=== PATIENT | male | born 1975 | race African-American/Black ===

== ENCOUNTER 2017-07-26 06:20 | Emergency (ER) ==
[2017-07-26 06:32] VITALS: BP 167/116; TEMP 97.7; BMI 32.1
[2017-07-26] MEDS ORDERED: ASPIRIN CHEWABLE PO STA (06:36)
--- NOTE | 2017-07-26 06:41 | ED.PDOC ---
General <TRENTON MARKHAM - Last Filed: 07/26/17 08:39> Stated Complaint: Woke up with mid sternal chest pain, heavyness, radiating to left arm, been short of breah Time Seen by Physician: 06:38 Mode of Arrival: Walk-In Information Source: Patient Nursing and Triage Documentation Reviewed and Agree: Yes Reviewed sepsis parameters & appropriate labs ordered?: Yes System Inflammatory Response Syndrome: Not Applicable <LEIDY EUGENE - Last Filed: 08/01/17 10:54> ED Provider: Dr. LEIDY EUGENE Chief Complaint: Chest Pain Sepsis Protocol: For patient's 13 years and over: Temp is 96.8 and below OR 101 and greater Pulse >90 BPM Resp >20/minute Acutely Altered Mental Status Are patient's symptoms suggestive of a new infection, such as: -Pneumonia -Skin, Soft Tissue -Endocarditis -UTI -Bone, Joint Infection -Implantable Device -Acute Abdominal Infection -Wound Infection -Meningitis -Blood Stream Catheter Infection -Unknown Cardiovascular Complaint Exam - Chest Pain Complaint/Exam Onset: Gradual Symptoms Are: Still present Timing: Constant Initial Severity: Moderate Current Severity: Moderate Location: Reports: Discrete, Midsternal Pain Radiates: Reports: None Character: Reports: Dull, Aching, Tightness Aggravating: Reports: None Alleviating: Reports: None Associated Signs and Symptoms: Denies: Diaphoresis, Nausea, Vomiting, Fever, Palpitations, Cough, Hemoptysis, Back pain, Abdominal pain, Dizziness, Short of air, Calf pain, Calf swelling Related Surgical History: Reports: None History of Healthcare-Acquired Pneumonia: Reports: No AMI/ACS Risk Factors: Reports: Family history TAD Risk Factors: Reports: None Pulmonary Embolism Risk Factors: Reports: None Prior Care for this Complaint: No Recent Stress Test: No Recent Echo/LV Function: No JVD Present: No Subcutaneous Emphysema Present: No Diminshed Breath Sounds: No Reproducible Chest Wall Pain: No Bilateral Pulses Present: No Unequal Pulses Noted: No If Risk Factors for AMI/ACS Consider: EKG, Cardiac Enzymes, Serial Studies, Oxygen, Aspirin Differential Diagnoses: ACS, Stable Angina Quality Indicators For Acute HI or Cardiac Chest Pain: EKG in 10min., ASA if indicated <LEIDY EUGENE - Last Filed: 08/01/17 10:54> Review of Systems - Review Of Systems Constitutional: Reports: No symptoms Eyes: Reports: No symptoms Ears, Nose, Mouth, Throat: Reports: No symptoms Respiratory: Reports: No symptoms Cardiac: Reports: Chest pain GI: Reports: No symptoms : Reports: No symptoms Musculoskeletal: Reports: No symptoms Skin: Reports: No symptoms Neurological: Reports: No symptoms Endocrine: Reports: No symptoms Hematologic/Lymphatic: Reports: No symptoms All Other Systems: Reviewed and Negative <LEIDY EUGENE Last Filed: 08/01/17 10:54> Past Medical History - Past Medical History Previously Healthy: Yes Endocrine: Reports: None Cardiovascular: Reports: None Respiratory: Reports: None Hematological: Reports: None Gastrointestinal: Reports: None Genitourinary: Reports: None Neuro/Psych: Reports: None Musculoskeletal: Reports: None Cancer: Reports: None - Surgical History General Surgical History: Reports: None - Family History Family History: Reports: Heart - Social History Smoking Status: Never smoker Hx Substance Use: Yes (marijuana) Alcohol Screening: Occasionally - Immunizations Tetanus Shot up to Date: Yes <LEDIY EUGENE Last Filed: 08/01/17 10:54> Physical Exam - Physical Exam Appearance: Well-appearing, No pain distress, Well-nourished Eyes: HAILEY, EOMI, Conjunctiva clear ENT: Ears normal, Nose normal, Oropharynx normal Respiratory: Airway patent, Breath sounds clear, Breath sounds equal, Respirations nonlabored Cardiovascular: RRR, Pulses normal, No rub, No murmur GI/: Soft, Nontender, No masses, Bowel sounds normal, No Organomegaly Musculoskeletal: Normal strength, ROM intact, No edema, No calf tenderness Skin: Warm, Dry, Normal color Neurological: Sensation intact, Motor intact, Reflexes intact, Cranial nerves intact, Alert, Oriented Psychiatric: Affect appropriate, Mood appropriate <LEIDY EUGENE Last Filed: 08/01/17 10:54> Interpretation - Radiology Interpretation Radiology Interpretation By: Radiologist Radiology Results: Negative Exam Interpreted: CXR <TRENTON MARKHAM Last Filed: 07/26/17 08:39> Re-Evaluation - Re-Evaluation Time of Re-Evaluation: 07:47 Status: Improved Vital Signs Stable: Yes (132/80) Pain Level: <4 <TRENTON MARKHAM Last Filed: 07/26/17 08:39> Critical Care Note - Critical Care Note Total Time (mins): 15 <LEIDY EUGENE - Last Filed: 08/01/17 10:54> Course - Course Hematology/Chemistry: 07/26/17 06:50 07/26/17 06:50 <SHAHRZADTRENTON - Last Filed: 07/26/17 08:39> - Course Hematology/Chemistry: 07/26/17 06:50 07/26/17 06:50 <LEIDY EUGENE - Last Filed: 08/01/17 10:54> - Course Orders, Labs, Meds: Lab Review 07/26/17 07/26/17 07/26/17 06:50 06:50 06:50 WBC 6.25 RBC 5.10 Hgb 14.2 Hct 41.9 L MCV 82.2 MCH 27.8 MCHC 33.9 RDW Coeff of Afsaneh 13.1 Plt Count 228 Immature Gran % (Auto) 0.0 Neut % (Auto) 27.3 Lymph % (Auto) 55.7 H [place] % (Auto) 11.2 H Eos % (Auto) 4.8 Baso % (Auto) 1.0 Immature Gran # (Auto) 0.0 Neut # 1.7 L Lymph # 3.5 H [place] # 0.7 Eos # 0.3 Baso # 0.1 D-Dimer (Manual) 159.70 Sodium 140 Potassium 4.1 Chloride 106 Carbon Dioxide 28 Anion Gap 10.1 BUN 11 Creatinine 0.91 Estimated GFR (MDRD) 112.00 BUN/Creatinine Ratio 12.08 Glucose 104 H Calcium 9.4 Total Bilirubin 0.5 AST 19 ALT 18 Alkaline Phosphatase 52 Total Creatine Kinase 229 CK-MB (CK-2) 2.6 CK-MB (CK-2) % 1.56107 Troponin I < 0.0100 Total Protein 7.3 Albumin 3.8 Globulin 3.5 Albumin/Globulin Ratio 1.09 Triglycerides Cholesterol LDL Cholesterol, Calc VLDL Cholesterol HDL Cholesterol Cholesterol/HDL Ratio TSH 07/26/17 07:55 WBC RBC Hgb Hct MCV MCH MCHC RDW Coeff of Afsaneh Plt Count Immature Gran % (Auto) Neut % (Auto) Lymph % (Auto) [place] % (Auto) Eos % (Auto) Baso % (Auto) Immature Gran # (Auto) Neut # Lymph # [place] # Eos # Baso # D-Dimer (Manual) Sodium Potassium Chloride Carbon Dioxide Anion Gap BUN Creatinine Estimated GFR (MDRD) BUN/Creatinine Ratio Glucose Calcium Total Bilirubin AST ALT Alkaline Phosphatase Total Creatine Kinase CK-MB (CK-2) CK-MB (CK-2) % Troponin I 0.0130 Total Protein Albumin Globulin Albumin/Globulin Ratio Triglycerides 54 Cholesterol 134 LDL Cholesterol, Calc 90 VLDL Cholesterol 11 HDL Cholesterol 33 L Cholesterol/HDL Ratio 4.1 L TSH 1.694 Orders Category Date Time Status EKG-(ED ONLY) Stat CARDIO 07/26/17 06:36 Completed NPO REMINDER: LAB TEST ONCE CARE 07/26/17 08:00 Completed CBC W/ AUTO DIFF Stat LAB 07/26/17 06:50 Completed COMPREHENSIVE METABOLIC PANEL Stat LAB 07/26/17 06:50 Completed CREATINE KINASE Stat LAB 07/26/17 06:50 Completed D-DIMER Stat LAB 07/26/17 06:50 Completed LIPID PANEL Stat LAB 07/26/17 07:55 Completed THYROID STIMULATING HORMONE Stat LAB 07/26/17 07:55 Completed TROPONIN I Stat LAB 07/26/17 06:50 Completed TROPONIN I Stat LAB 07/26/17 07:55 Completed Aspirin [Aspirin Chewable] MEDS 07/26/17 06:36 Discontinued 324 mg PO ONCE STA Morphine Sulfate [Morphine 2 mg/ml Syringe] MEDS 07/26/17 07:09 Discontinued 2 mg IVP ONCE STA Ondansetron HCl/Pf [Zofran 4 mg/2 ml] MEDS 07/26/17 07:08 Discontinued 4 mg IVP ONCE STA CHEST, 2 VIEWS PA & LAT Stat RADS 07/26/17 06:36 Completed Medications Discontinued Medications Generic Name Dose Route Start Last Admin Trade Name Jann PRN Reason Stop Dose Admin Aspirin 324 mg 07/26/17 06:36 07/26/17 06:52 Aspirin Chewable PO 07/26/17 06:37 324 mg ONCE STA Administration Morphine Sulfate 2 mg 07/26/17 07:09 07/26/17 07:10 Morphine 2 Mg/Ml Syringe IVP 07/26/17 07:10 2 mg ONCE STA Administration Ondansetron HCl 4 mg 07/26/17 07:08 07/26/17 07:10 Zofran 4 Mg/2 Ml IVP 07/26/17 07:09 4 mg ONCE STA Administration Vital Signs: Temp Pulse Resp BP Pulse Ox 07/26/17 06:23 97.7 F 55 L 20 167/116 H 98 SHWETA Risk Score Age >/= 65: No Known CAD (Stenosis >/= 50%): No ASA Use in Past 7 Days: No Severe Angina (>/= 2 episodes in 24 hours): No EKG ST Changes >/= 0.5mm: No Postive Cardiac Marker: No SHWETA Total Score: 0 <LEIDY EUGENE - Last Filed: 08/01/17 10:54> SHWETA Risk Score: Risk Score Odds of by 30D 0 0.1 (0.1-0.2) 1 0.3 (0.2-0.3) 2 0.4 (0.3-0.5) 3 0.7 (0.6-0.9) 4 1.2 (1.0-1.5) 5 2.2 (1.9-2.6) 6 3.0 (2.5-3.6) 7 4.8 (3.8-6.1) Departure - Departure Time of Disposition: 08:40 Pt referred to PMD for follow-up: Yes IPMP verified?: No Disposition Discussed With: Patient, Family <TRENTON MARKHAM - Last Filed: 07/26/17 08:39> <LEIDY EUGENE - Last Filed: 08/01/17 10:54> - Departure Disposition: HOME SELF-CARE Discharge Problem: Chest pain, Non-cardiac chest pain Instructions: Chest Pain (ED) Condition: Stable Additional Instructions: Follow up with the clinic to get established and get referral to cardiology for stress test Return if worse. Take Asa 81mg Daily until see by PCP Prescriptions: Ibuprofen [Motrin] 600 mg PO Q6H PRN #30 tablet PRN Reason: Analgesia Tramadol HCl [Ultram] 50 mg PO Q6H PRN #10 tablet PRN Reason: Severe Pain Allergies/Adverse Reactions: Allergies No Known Allergies Allergy (Unverified 07/26/17 06:29) Home Medications: Ambulatory Orders Ibuprofen [Motrin] 600 mg PO Q6H PRN #30 tablet 07/26/17 Tramadol HCl [Ultram] 50 mg PO Q6H PRN #10 tablet 07/26/17
[2017-07-26] MEDS ORDERED: ZOFRAN 4 MG/2 ML IM STA (06:42)
[2017-07-26] MEDS ORDERED: MORPHINE 2 MG/ML SYRINGE IM STA (06:42)
--- NOTE | 2017-07-26 07:00 | DI ---
EXAM: PA and lateral views of the chest HISTORY: Chest pain COMPARISON: None FINDINGS: Lungs are clear with no lobar consolidation, failure, large effusion or significant atelec tasis. Cardiac and mediastinal silhouettes show no acute abnormality. No acute osseous or soft tiss ue abnormalities. IMPRESSION: No active disease.
[2017-07-26] MEDS ORDERED: ZOFRAN 4 MG/2 ML IVP STA (07:08)
[2017-07-26] MEDS ORDERED: MORPHINE 2 MG/ML SYRINGE IVP STA (07:09)
== END 2017-07-26 08:50 | disposition home or self-care (01) ==
LOC: ED 06:20
DX: R07.89 Other chest pain (principal); R06.02 Shortness of breath
CPT/HCPCS: 36415; 80053; 80061; 82550; 82553; 84443; 84484; 85025; 85379; 93005; 93010; 96374; 96375; 99284

== ENCOUNTER 2018-07-14 18:42 | Emergency (ER) ==
[2018-07-14 18:42] VITALS: BMI 32.1
[2018-07-14 18:45] VITALS: BP 135/85; TEMP 97.8
[2018-07-14] MEDS ORDERED: TORADOL IVP STA (18:54)
[2018-07-14] MEDS ORDERED: ZOFRAN 4 MG/2 ML IVP STA (18:54)
[2018-07-14] MEDS ORDERED: SODIUM CHLORIDE 1,000 ML IV STA (18:54)
--- NOTE | 2018-07-14 18:59 | ED.PDOC ---
General ED Provider: Dr. TRENTON MARKHAM Chief Complaint: Kidney Stone Stated Complaint: Patient is a 42 year old male who comes to the Er with a one day history of bilateral flank pain. Pain worse during urination has a history of kidney stones. states he has not eaten all day. Took aleve at lunch time. Time Seen by Physician: 18:56 Mode of Arrival: Walk-In Information Source: Patient Exam Limitations: No limitations Nursing and Triage Documentation Reviewed and Agree: Yes Does patient meet sepsis criteria?: No System Inflammatory Response Syndrome: Not Applicable Sepsis Protocol: For patient's 13 years and over: Temp is 96.8 and below OR 101 and greater Pulse >90 BPM Resp >20/minute Acutely Altered Mental Status Are patient's symptoms suggestive of a new infection, such as: -Pneumonia -Skin, Soft Tissue -Endocarditis -UTI -Bone, Joint Infection -Implantable Device -Acute Abdominal Infection -Wound Infection -Meningitis -Blood Stream Catheter Infection -Unknown Musculoskeletal Complaint Exam - Back Pain Complaint/Exam Mechanism of Injury: Reports: No known trauma Onset/Duration: 1-2 days Symptoms Are: Still present Timing: Constant Initial Severity: Moderate Current Severity: Severe Location: Reports: Radiating (to the groin ) Character: Reports: Aching, Throbbing Aggravating: Reports: Movements, Bending, Walking Alleviating: Reports: None Associated Signs and Symptoms: Reports: Flank pain. Denies: Swelling, Redness, Bruising, Fever, Weakness, Numbness, Tingling, Abdominal pain, Bladder incontinence, Bowel incontinence, Weight loss, Pain with weight bearing Related History: Reports: Similar episode (kidney stones many years ago. ) TAD Risk Factors: Reports: None AAA Risk Factors: Reports: None Cauda Equina Risk Factors: Reports: None Epidural Abcess Risk Factors: Reports: None Related Surgical History: Reports: None Focal Tenderness: Yes (left lower back and buttocks ) Paraspinal Muscle Tenderness: Yes Paraspinal Muscle Spasm: Yes Scoliosis: No Lordosis: No Kyphosis: No SLR Test: Right Negative, Left Negative Hip Motion Testing Pain: Right Negative, Left Negative Focal Weakness: Present: None Focal Sensory Loss: Present: None Gait: Present: Normal Back Picture: 1 - are of pain and tenderness Differential Diagnoses: Herniated Disk, Renal Colic, Strain, Sprain Review of Systems - Review Of Systems Constitutional: Reports: No symptoms Eyes: Reports: No symptoms Ears, Nose, Mouth, Throat: Reports: No symptoms Respiratory: Reports: No symptoms Cardiac: Reports: No symptoms GI: Reports: Poor appetite. Denies: Diarrhea, Nausea, Vomiting : Reports: Flank pain, Pain Musculoskeletal: Reports: Back pain Skin: Reports: No symptoms Neurological: Reports: Anxiety Endocrine: Reports: No symptoms Hematologic/Lymphatic: Reports: No symptoms All Other Systems: Reviewed and Negative Past Medical History - Past Medical History Previously Healthy: Yes Endocrine: Reports: None Cardiovascular: Reports: None Respiratory: Reports: None Hematological: Reports: None Gastrointestinal: Reports: None Genitourinary: Reports: Kidney stones Neuro/Psych: Reports: None Musculoskeletal: Reports: None Cancer: Reports: None - Surgical History General Surgical History: Reports: None - Family History Family History: Reports: Heart - Social History Smoking Status: Never smoker Hx Substance Use: No Alcohol Screening: Occasionally - Immunizations Tetanus Shot up to Date: Yes Physical Exam - Physical Exam Appearance: Ill-appearing Ill-appearing: Moderate Pain Distress: Severe Eyes: HAILEY, EOMI, Conjunctiva clear ENT: Dry mucosa Neck: Supple Respiratory: Airway patent, Breath sounds clear, Breath sounds equal, Respirations nonlabored Cardiovascular: RRR, Pulses normal, No rub, No murmur GI/: Soft, Nontender, No masses, Bowel sounds normal, No Organomegaly Musculoskeletal: Limited ROM (of lower back ) Skin: Warm, Dry Neurological: Sensation intact, Motor intact, Reflexes intact, Cranial nerves intact, Alert, Oriented Psychiatric: Anxious Interpretation - Radiology Interpretation Radiology Interpretation By: Radiologist Radiology Results: Negative Exam Interpreted: CT Scan Re-Evaluation - Re-Evaluation Time of Re-Evaluation: 20:53 Status: Improved Vital Signs Stable: Yes Pain Level: 06/11 Critical Care Note - Critical Care Note Total Time (mins): 0 Course - Course Hematology/Chemistry: 07/14/18 19:04 07/14/18 19:04 Orders, Labs, Meds: Lab Review 07/14/18 07/14/18 07/14/18 19:04 19:04 19:48 WBC 5.22 RBC 5.45 Hgb 14.7 Hct 44.6 MCV 81.8 MCH 27.0 MCHC 33.0 RDW Coeff of Afsaneh 12.9 Plt Count 252 Immature Gran % (Auto) 0.2 Neut % (Auto) 27.5 Lymph % (Auto) 54.2 H [place] % (Auto) 11.7 H Eos % (Auto) 5.4 Baso % (Auto) 1.0 Immature Gran # (Auto) 0.0 Neut # (Auto) 1.4 L Lymph # (Auto) 2.8 [place] # (Auto) 0.6 Eos # (Auto) 0.3 Baso # (Auto) 0.1 Sodium 139.5 Potassium 4.15 Chloride 101.3 Carbon Dioxide 29.5 Anion Gap 12.85 BUN 10.0 Creatinine 1.09 Estimated GFR (MDRD) 90.00 BUN/Creatinine Ratio 9.17 Glucose 90.5 Calcium 9.25 Total Bilirubin 0.94 AST 25.4 ALT 18.6 Alkaline Phosphatase 50.7 Total Protein 8.07 Albumin 4.47 Globulin 3.60 Albumin/Globulin Ratio 1.24 Amylase 117.4 H Lipase 190.8 Urine Color Yellow Urine Clarity Clear Urine pH 5.5 Ur Specific [place] >=1.030 Urine Protein Negative Urine Glucose (UA) Negative Urine Ketones Negative Urine Blood Negative Urine Nitrite Negative Urine Bilirubin Negative Urine Urobilinogen 0.2 Ur Leukocyte Esterase Negative Orders Category Date Time Status ED IV/MEDIPORT/POWERPORT .ONCE EMERGENCY 07/14/18 18:54 Active AMYLASE Stat LAB 07/14/18 19:04 Completed CBC W/ AUTO DIFF Stat LAB 07/14/18 19:04 Completed COMPREHENSIVE METABOLIC PANEL Stat LAB 07/14/18 19:04 Completed LIPASE Stat LAB 07/14/18 19:04 Completed URINALYSIS C & S IF INDICATED Stat LAB 07/14/18 19:48 Completed 0.9 % Sodium Chloride [Saline Flush] MEDS 07/14/18 18:54 Ordered 1 syr IVF PRN PRN Ketorolac Tromethamine [Toradol] MEDS 07/14/18 18:54 Discontinued 30 mg IVP ONCE STA Ondansetron HCl/Pf [Zofran 4 mg/2 ml] MEDS 07/14/18 18:54 Discontinued 4 mg IVP ONCE STA Sodium Chloride 0.9% [Sodium Chloride] 1,000 ml MEDS 07/14/18 18:[address] ABD/PEL WO RENAL STONE PROT Stat RADS 07/14/18 18:54 Completed Medications Generic Name Dose Route Start Last Admin Trade Name Freq PRN Reason Stop Dose Admin Sodium Chloride 1 syr 07/14/18 18:54 07/14/18 19:05 Saline Flush IVF 1 syr PRN PRN Administration To flush IV Discontinued Medications Generic Name Dose Route Start Last Admin Trade Name Freq PRN Reason Stop Dose Admin Sodium Chloride 1,000 mls @ 1,000 mls/hr 07/14/18 18:54 07/14/18 19:05 Sodium Chloride IV 07/14/18 19:53 1,000 mls/hr BOLUS STA Administration Ketorolac Tromethamine 30 mg 07/14/18 18:54 07/14/18 19:05 Toradol IVP 07/14/18 18:55 30 mg ONCE STA Administration Ondansetron HCl 4 mg 07/14/18 18:54 07/14/18 19:05 Zofran 4 Mg/2 Ml IVP 07/14/18 18:55 4 mg ONCE STA Administration Vital Signs: Temp Pulse Resp BP Pulse Ox 07/14/18 18:42 97.8 F 67 16 135/85 99 Departure - Departure Time of Disposition: 20:40 Disposition: HOME SELF-CARE Discharge Problem: Low back sprain Qualifiers: Encounter type: initial encounter Qualified Code(s): S33.5XXA - Sprain of ligaments of lumbar spine, initial encounter Instructions: Muscle Spasm (ED), Back Pain (ED), Lower Back Exercises (ED) Condition: Fair Pt referred to PMD for follow-up: Yes IPMP verified?: No Additional Instructions: Follow up with PCP in 3 days Prescriptions: Cyclobenzaprine HCl [Flexeril] 10 mg PO DAILY PRN #20 tablet PRN Reason: spasms Ibuprofen [Motrin] 600 mg PO Q6H PRN #30 tablet PRN Reason: Analgesia Allergies/Adverse Reactions: Allergies No Known Allergies Allergy (Unverified 07/14/18 18:45) Home Medications: Ambulatory Orders Cyclobenzaprine HCl [Flexeril] 10 mg PO DAILY PRN #20 tablet 07/14/18 Ibuprofen [Motrin] 600 mg PO Q6H PRN #30 tablet 07/14/18
--- NOTE | 2018-07-14 20:31 | CT ---
EXAM: CT scan of the abdomen pelvis without contrast HISTORY: Back pain left side TECHNIQUE: Helical imaging of the abdomen pelvis was performed without contrast. 3 mm thin axial im ages and coronal and sagittal reconstructions were provided for interpretation. FINDINGS: The small and large bowel loops are normal caliber. No acute abnormalities are seen withi n the liver and spleen. The proximal ureters are normal size. There is no free air. The appendix a ppears normal. No acute abnormalities are seen within the anterior abdominal wall. The helical images obtained through the pelvis demonstrate a normal appearance of the rectum, urinary bladder. There is no free fluid seen within the pelvis. Lung bases are clear. No lytic or blastic lesions are seen within the osseous structures. IMPRESSION: No evidence of obstructing ureteral calculi. There is no bowel obstruction or acute inflammatory change seen within the abdomen and pelvis.
[2018-07-14] MEDS ORDERED: TYLENOL #3 TAB PO STA (20:49)
== END 2018-07-14 21:06 | disposition home or self-care (01) ==
LOC: ED 18:42
DX: S33.5XXA Sprain of ligaments of lumbar spine, initial encounter (principal); X50.1XXA Overexertion from prolonged static or awkward postures, initial encounter; Z87.442 Personal history of urinary calculi
CPT/HCPCS: 36415; 74176; 80053; 81001; 82150; 83690; 85025; 96361; 96374; 96375; 99283